=== PATIENT | male | born 1995 | race Caucasian/White ===

== ENCOUNTER 2017-01-08 20:53 | Emergency (ER) | payer BC, OTHER ==
[2017-01-08] MEDS: Sodium Chloride 0.9% 1,000 ML IV ONE ×2 (21:00→22:00)
[2017-01-08] MEDS ORDERED: Sodium Chloride 0.9% 2.5 ML Syringe FLUSH PRN (21:01)
[2017-01-08] MEDS ORDERED: Sodium Chloride 0.9% 10 ML Syringe FLUSH PRN (21:01)
[2017-01-08] MEDS ORDERED: fentaNYL 100 MCG/2 ML SDV ONE (21:02)
[2017-01-08] MEDS ORDERED: fentaNYL 100 MCG/2 ML SDV IVPUSH ONE (21:02)
[2017-01-08] MEDS ORDERED: Diphtheria,Pertussis(Acell),Tetanus Vaccine 0.5 ML Syringe IM ONE (21:09)
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
[2017-01-08 21:30] LABS: CHLORIDE,CL 108 mmol/L (98-110); SODIUM,NA 140 mmol/L (136-146)
[2017-01-08 21:46] VITALS: BP 125/80
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
[2017-01-08] MEDS ORDERED: Sodium Chloride 0.9% 1,000 ML IV SCH (22:00)
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
== END 2017-01-08 22:25 ==
LOC: MW.ED 20:53
DX: S82.041B Displaced comminuted fracture of right patella, initial encounter for open fracture type I or II (principal); S72.321A Displaced transverse fracture of shaft of right femur, initial encounter for closed fracture; S52.511A Displaced fracture of right radial styloid process, initial encounter for closed fracture; S72.401A Unspecified fracture of lower end of right femur, initial encounter for closed fracture; Z91.013 Allergy to seafood; V28.4XXA Motorcycle driver injured in noncollision transport accident in traffic accident, initial encounter; Y92.488 Other paved roadways as the place of occurrence of the external cause
CPT/HCPCS: 29125; 36415; 51702; 71010; 72020; 72170; 73100; 73551; 73590; 80053; 81001; 83690; 85025; 85610; 86850; 86900; 86901; 90471; 90715; 96361; 96374; 99285; G0390; J3010; J7040